=== PATIENT | female | born 1960 | race Caucasian/White ===

== ENCOUNTER → 2017-05-17 | Outpatient (CLI) | payer BC ==
[~2017-05-17] MED LIST: ACETAMINOPHEN PO; ASPIRIN EC81 M1 PO; BIRTH CONTROL PILL PO; CALCIUM + D 6001 TA1 PO; CALCIUM + VIT1 EACH PO; CALCIUM 500 +1 EAC2 PO; CERTAGEN PO; FERROUS SULFATE PO; FLOMAX0.4 MG PO; LEVAQUIN PO; PERCOCET5/325 PO; PHENERGAN PR; [UNRECOGNIZED DRUG - OTHER] PO
--- NOTE | ~2017-05-17 | MY29 ---
[facility] A Service of [facility] RADIOLOGY TEXT RESULTS PATIENT: ANDRES ANDRE LOCATION: [facility] : 60 UNIT #: [id number] AGE: [address]: Juana López APRN SEX: F ORDER DR: [id number] [facility] [address] [place], [place] [address] [id number] O MR#: [id number] Acc #: [id number] NAME: ANDRES ANDRE. : 1960 SEX: F STUDY DATE/TIME: 05/17/2017 9:19 UNIT: [facility] ROOM: STUDY DESCRIPTION: MY SALLY SCREENING W/ CAD BILAT Attending Physician: Juana López A.P.R.N. Referring Physician: Juana López A.P.R.N. Ordering Physician: Juana López A.P.R.N. Primary Care Physician: Chelsy Travis M.D. MEDICAL IMAGING REPORT This report is preliminary unless electronic signature is present EXAM Digital screening mammogram, 05/17/2017, [facility]. HISTORY 57-year-old woman no risk elevation. Annual screen. COMPARISON Mammograms date to 12/02/2007 with most recent 03/31/2016. FINDINGS Digital imaging of each breast was completed utilizing a two-view examination of each breast in craniocaudal and mediolateral-oblique projections. Review and interpretation of digital mammograms include a second review in conjunction with FDA-approved CAD device. There is a normal parenchymal presentation bilaterally consistent with the patient's age. There are no breast masses imaged and no parenchymal asymmetry is visualized. There are no suspicious microcalcifications and I see no focal architectural disturbance. IMPRESSION Negative screening digital mammogram. One-year followup recommended. Patients over the age of 40 are entered into a reminder system with target due date for the next mammogram. A result letter will also be sent to the patient. BIRADS: 1 Negative ADDENDUM Breast parenchyma is fatty replaced. [facility] A Service of [facility] RADIOLOGY TEXT RESULTS PATIENT: ANDRES ANDRE LOCATION: [facility] : 60 UNIT #: [id number] AGE: [address]: Juana López APRN SEX: F ORDER DR: Dictated by... Yann Celis M.D. THIS IS AN ELECTRONICALLY VERIFIED REPORT Yann Celis M.D. at 05/17/2017 10:43 AM LOBO/glenn TD: 05/17/2017 10:04 JOB #: [id number] MEDICAL IMAGING REPORT Page 1 of 1 COPY
== END | disposition home or self-care (01) ==
LOC: CWCC 05-14 07:30
DX: Z12.31 Encounter for screening mammogram for malignant neoplasm of breast (principal); R92.8 Other abnormal and inconclusive findings on diagnostic imaging of breast
CPT/HCPCS: G0202